=== PATIENT | male | born 1980 | race Caucasian/White ===

== ENCOUNTER 2018-07-31 17:53 | Emergency (ER) | payer BC ==
[2018-07-31 18:10] VITALS: BP 147/90
--- NOTE | 2018-07-31 18:31 | EDM.PDOC ---
ED HPI GENERAL MEDICAL PROBLEM - General Chief Complaint: Chest Pain Stated Complaint: chest pain Time Seen by Provider: 07/31/18 18:10 Source of Information: Reports: Patient History Limitations: Reports: No Limitations - History of Present Illness INITIAL COMMENTS - FREE TEXT/NARRATIVE: This patient is a 37 year old male that presents to the ER. Patent reports that he today about 2 hours ago started having left sided chest pain. Patient reports he was eating when it occurred. Patient reports the pain is worse with twisting or pulling of the chest. Patient reports he had the same pain in June about a month ago and was seen in [place] [facility]. He reports being diagnosed with chostochondritis. The patient reports that he did not take anything for it today. Patient denies injury. Patient denies goldsmith, dizziness, n, v , d, f, neck pain, neck stiffness, back pain, abd pain, urinary/bowel changes. Patient reports the pain just pulls in the area. The pain is easily manipulated on examination. Onset: Today Onset Date: 07/31/18 Duration: Hour(s): (2) Location: Reports: Chest Quality: Reports: Ache Severity: Mild Improves with: Reports: Immobilization Worsens with: Reports: Movement (of the chest) Associated Symptoms: Reports: Chest Pain. Denies: Confusion, Cough, cough w sputum, Diaphoresis, Fever/Chills, Headaches, Loss of Appetite, Malaise, Nausea/ Vomiting, Rash, Seizure, Shortness of Breath, Syncope, Weakness - Related Data Allergies Allergy/AdvReac Type Severity Reaction Status Date / Time sulfamethoxazole Allergy Hives Verified 07/31/18 17:55 [From Bactrim] trimethoprim [From Bactrim] Allergy Hives Verified 07/31/18 17:55 Home Meds: Home Meds Sertraline HCl 150 mg PO BEDTIME 12/25/15 [History] Acetaminophen [Tylenol] 650 mg PO Q6H PRN 08/06/17 [History] Ibuprofen 800 mg PO Q6HR PRN 08/06/17 [History] Multivitamin [One Daily] 1 tab PO DAILY 08/06/17 [History] Omeprazole 20 mg PO DAILY 08/06/17 [History] Bacillus Coagulans [Probiotic] 2 tab PO DAILY 08/09/17 [History] Past Medical History - Past Health History Medical/Surgical History: Denies Medical/Surgical History HEENT History: Reports: None Cardiovascular History: Reports: None Respiratory History: Reports: None Gastrointestinal History: Reports: GERD Genitourinary History: Reports: None Musculoskeletal History: Reports: None Neurological History: Reports: None Psychiatric History: Reports: Anxiety Endocrine/Metabolic History: Reports: None Hematologic History: Reports: None Immunologic History: Reports: None Oncologic (Cancer) History: Reports: None Dermatologic History: Reports: None - Infectious Disease History Infectious Disease History: Reports: Chicken Pox - Past Surgical History Head Surgeries/Procedures: Reports: None HEENT Surgical History: Reports: None Cardiovascular Surgical History: Reports: None GI Surgical History: Reports: Colonoscopy, EGD Social & Family History - Family History Family Medical History: Noncontributory - Tobacco Use Smoking Status *Q: Never Smoker - Caffeine Use Caffeine Use: Reports: Energy Drinks Caffeine Use Comment: random usage - Living Situation & Occupation Occupation: Employed ED ROS GENERAL - Review of Systems Review Of Systems: See Below Constitutional: Reports: No Symptoms HEENT: Reports: No Symptoms Respiratory: Reports: No Symptoms Cardiovascular: Reports: Chest Pain. Denies: Dyspnea on Exertion, Edema, Lightheadedness, Orthopnea, Palpitations, PND, Syncope Endocrine: Reports: No Symptoms GI/Abdominal: Reports: No Symptoms : Reports: No Symptoms Musculoskeletal: Reports: No Symptoms Skin: Reports: No Symptoms Neurological: Reports: No Symptoms Psychiatric: Reports: No Symptoms Hematologic/Lymphatic: Reports: No Symptoms Immunologic: Reports: No Symptoms ED EXAM, GENERAL - Physical Exam Exam: See Below Exam Limited By: No Limitations General Appearance: Alert, WD/WN, No Apparent Distress, Anxious Eye Exam: Bilateral Eye: Normal Inspection, PERRL Ears: Normal External Exam, Normal Canal, Hearing Grossly Normal, Normal TMs Ear Exam: Bilateral Ear: Auricle Normal, Canal Normal, TM normal Nose: Normal Inspection, Normal Mucosa, No Blood Throat/Mouth: Normal Inspection, Normal Lips, Normal Teeth, Normal Gums, Normal Oropharynx, Normal Voice, No Airway Compromise Head: Atraumatic, Normocephalic Neck: Normal Inspection, Supple, Non-Tender, Full Range of Motion Respiratory/Chest: No Respiratory Distress, Lungs Clear, Normal Breath Sounds, No Accessory Muscle Use, Other (mild tenderness to the left anterior chest with palpation. This pain is made worst by twisting/pulling of the chest wall. ). No : Respiratory Distress, Decreased Breath Sounds, Crackles, Rales, Rhonchi, Wheezing, Stridor, Pleural Rub, Accessory Muscle Use, Retractions, Splinting, Prolonged Expiration Cardiovascular: Normal Peripheral Pulses, Regular Rate, Rhythm, No Edema, No Gallop, No JVD, No Murmur, No Rub Peripheral Pulses: 2+: Radial (L), Radial (R), Posterior Tibial (L), Posterior Tibial (R), Dorsalis Pedis (L), Dorsalis Pedis (R) GI/Abdominal: Normal Bowel Sounds, Soft, Non-Tender, No Organomegaly, No Distention, No Abnormal Bruit, No Mass, Pelvis Stable (Male) Exam: Deferred Rectal (Males) Exam: Deferred Back Exam: Normal Inspection, Full Range of Motion. No: CVA Tenderness (L), CVA Tenderness (R), Decreased Range of Motion, Muscle Spasm, Paraspinal Tenderness, Vertebral Tenderness Extremities: Normal Inspection, Normal Range of Motion, Non-Tender, No Pedal Edema, Normal Capillary Refill. No: Pedal Edema, Slow Capillary Refill Neurological: Alert, Oriented, Normal Cognition, Normal Gait, No Motor/Sensory Deficits Psychiatric: Normal Affect, Anxious Skin Exam: Warm, Dry, Intact, Normal Color, No Rash Lymphatic: No Adenopathy EKG INTERPRETATION EKG Date: 07/31/18 Time: 17:58 Rhythm: NSR Rate (Beats/Min): 94 [place]: Normal P-Wave: Present QRS: Normal ST-T: Normal QT: Normal Course - Vital Signs Last Recorded V/S: Last Vital Signs Temp 98.0 F 07/31/18 17:55 Pulse 89 07/31/18 17:55 Resp 18 07/31/18 17:55 BP 147/90 H 07/31/18 17:55 Pulse Ox 95 07/31/18 17:55 - Orders/Labs/Meds Orders: Active Orders 24 hr Category Date Time Status Chest 2V [CR] Stat Exams 07/31/18 18:20 Taken Labs: Laboratory Tests 07/31/18 07/31/18 Range/Units 18:30 18:30 WBC 8.2 (5.0-10.0) 10^3/uL RBC 4.91 (4.50-6.00) 10^6/uL Hgb 14.8 (14.0-18.0) g/dL Hct 42.8 (40.0-54.0) % MCV 87.2 (82.0-94.0) fL MCH 30.1 (27.0-32.0) pg MCHC 34.6 (33.0-38.0) g/dL RDW Coeff of Sam 12.3 (11.0-15.0) % Plt Count 238 (150-400) 10^3/uL Neut % (Auto) 73.0 (35-85) % Lymph % (Auto) 16.5 (10-55) % [place] % (Auto) 6.6 (0-16) % Eos % (Auto) 3.8 (0-5) % Baso % (Auto) 0.1 (0-3) % Neut # (Auto) 6.02 (1.80-7.00) 10^3/uL Lymph # (Auto) 1.36 (1.00-4.80) 10^3/uL [place] # (Auto) 0.54 (0.00-0.80) 10^3/uL Eos # (Auto) 0.31 (0.00-0.45) 10^3/uL Baso # (Auto) 0.01 10^3/uL Sodium 143 (136-145) mEq/L Potassium 4.0 (3.5-5.0) mEq/L Chloride 104 (98-106) mEq/L Carbon Dioxide 31 (21-32) mmol/L BUN 14 (7-18) mg/dL Creatinine 0.9 (0.7-1.3) mg/dL Est Cr Clr Drug Dosing 4.50 mL/min Estimated GFR (MDRD) > 60 (>=60) mL/min Glucose 115 H (75-99) mg/dL Calcium 9.0 (8.4-10.1) mg/dL Total Bilirubin 0.4 (0.0-1.0) mg/dL AST 15 (15-37) U/L ALT 33 (12-78) U/L Alkaline Phosphatase 86 (46-116) U/L Troponin I < 0.017 (0.00-0.06) ng/mL NT-Pro-B Natriuret Pep 11 (0-1000) pg/mL Total Protein 7.6 (6.4-8.2) g/dL Albumin 3.7 (3.4-5.0) g/dL Meds: Medications Discontinued Medications Generic Name Dose Route Start Last Admin Trade Name Freq PRN Reason Stop Dose Admin Ketorolac Tromethamine 60 mg 07/31/18 18:38 07/31/18 18:43 Toradol IM 07/31/18 18:39 60 mg ONETIME ONE Administration - Radiology Interpretation Free Text/Narrative:: CXR: No infiltrates, no rib fxs, pneumo. Departure - Departure Time of Disposition: 19:48 Disposition: Home, Self-Care Preliminary Cause of *Q: Other_Special Instruction Reason for Transfer *Q: Other Condition: Good Clinical Impression: Costal chondritis Instructions: Costochondritis, [id number] Referrals: PCP,Not In Area [Primary Care Provider] - Forms: ED Department Discharge Additional Instructions: Followup with your primary care provider Return to the ER for worsening of condition or any emergent concerns Motrin over the counter for pain No heavy lifting for 2 weeks or until improved - My Orders Last 24 Hours: My Active Orders 07/31/18 18:20 Chest 2V [CR] Stat - Assessment/Plan Last 24 Hours: My Active Orders 07/31/18 18:20 Chest 2V [CR] Stat Plan: PLEASE SEE RN NOTE FOR PFSH.
[2018-07-31] MEDS ORDERED: Ketorolac 60 MG/2 ML SDV IM ONE (18:38)
[2018-07-31 18:57] LABS: CHLORIDE,CL 104 mEq/L (98-106); SODIUM,NA 143 mEq/L (136-145)
== END 2018-07-31 19:55 | disposition home or self-care (01) ==
LOC: CC.ED 17:53
DX: M94.0 Chondrocostal junction syndrome [Tietze] (principal); F41.9 Anxiety disorder, unspecified; K21.9 Gastro-esophageal reflux disease without esophagitis; Z79.899 Other long term (current) drug therapy; Z88.2 Allergy status to sulfonamides; Z88.1 Allergy status to other antibiotic agents
CPT/HCPCS: 36415; 71046; 80053; 83880; 84484; 85025; 96372; 99284; J1885

== ENCOUNTER 2018-12-01 04:19 | Emergency (ER) | payer BC ==
[2018-12-01] MEDS ORDERED: Aspirin 81 MG Tab.Chew PO ONE (04:47)
[2018-12-01 04:54] VITALS: BP 141/82
[2018-12-01 04:59] LABS: CHLORIDE,CL 106 mEq/L (98-106); SODIUM,NA 143 mEq/L (136-145)
--- NOTE | 2018-12-01 05:17 | EDM.PDOC ---
ED HPI GENERAL MEDICAL PROBLEM - General Chief Complaint: Chest Pain Stated Complaint: "Having chest pain" Time Seen by Provider: 12/01/18 04:56 Source of Information: Reports: Patient History Limitations: Reports: No Limitations - History of Present Illness INITIAL COMMENTS - FREE TEXT/NARRATIVE: Patient presents to ER with left sided chest pain. States is unsure if pain awoke him but he was up to bathroom and experiencing this discomfort. He admits the pain radiated through to his back. [place] anxious and short of breath as a result. He states he noted a twitching in his left elbow and wasn't sure if it was a muscle spasm or his pulse racing and that made the anxiety and discomfort worse. [place] nauseated and did note diaphoresis. Admits he does have anxiety with PTSD due to a tour in [place]. States has been worse since returning home. Currently on Sertraline. Was seen in the [place] ER in June and here in July for same concerns. Had thorough work up that was normal. Father had [place] at age 51. Denies history of hypertension, hyperlipidemia. Nonsmoker. Occasional caffeine use. Onset: Today, Sudden Duration: Minutes:, Improving Location: Reports: Chest Quality: Reports: Sharp, Stabbing Severity: Moderate Improves with: Reports: Rest Associated Symptoms: Reports: Chest Pain, Diaphoresis, Nausea/Vomiting, Shortness of Breath. Denies: Confusion, Cough, Fever/Chills, Loss of Appetite, Syncope, Weakness Chest Pain Score (Numeric/FACES): 3 - Related Data Allergies Allergy/AdvReac Type Severity Reaction Status Date / Time sulfamethoxazole Allergy Hives Verified 12/01/18 04:41 [From Bactrim] trimethoprim [From Bactrim] Allergy Hives Verified 12/01/18 04:41 Home Meds: Home Meds Sertraline HCl 150 mg PO BEDTIME 12/25/15 [History] Acetaminophen [Tylenol] 650 mg PO Q6H PRN 08/06/17 [History] Ibuprofen 800 mg PO Q6HR PRN 08/06/17 [History] Multivitamin [One Daily] 1 tab PO DAILY 08/06/17 [History] Omeprazole 20 mg PO DAILY 08/06/17 [History] Bacillus Coagulans [Probiotic] 2 tab PO DAILY 08/09/17 [History] Past Medical History - Past Health History Medical/Surgical History: Denies Medical/Surgical History HEENT History: Reports: None Cardiovascular History: Reports: None Respiratory History: Reports: None Gastrointestinal History: Reports: GERD Genitourinary History: Reports: None Musculoskeletal History: Reports: None Neurological History: Reports: None Psychiatric History: Reports: Anxiety Endocrine/Metabolic History: Reports: None Hematologic History: Reports: None Immunologic History: Reports: None Oncologic (Cancer) History: Reports: None Dermatologic History: Reports: None - Infectious Disease History Infectious Disease History: Reports: Chicken Pox - Past Surgical History Head Surgeries/Procedures: Reports: None HEENT Surgical History: Reports: None Cardiovascular Surgical History: Reports: None GI Surgical History: Reports: Colonoscopy, EGD Social & Family History - Family History Family Medical History: Noncontributory Psychiatric: Reports: PTSD - Tobacco Use Smoking Status *Q: Never Smoker Second Hand Smoke Exposure: No - Caffeine Use Caffeine Use: Reports: Energy Drinks Caffeine Use Comment: random usage - Recreational Drug Use Recreational Drug Use: No - Living Situation & Occupation Occupation: Employed ED ROS GENERAL - Review of Systems Review Of Systems: See Below Constitutional: Denies: Fever, Chills, Malaise, Weakness, Decreased Appetite HEENT: Denies: Ear Pain, Sinus Problem, Throat Pain, Vertigo, Vision Change Respiratory: Reports: Shortness of Breath. Denies: Cough Cardiovascular: Reports: Chest Pain. Denies: Edema, Lightheadedness Endocrine: Denies: Fatigue GI/Abdominal: Reports: Nausea. Denies: Abdominal Pain, Constipation, Diarrhea, Vomiting : Reports: No Symptoms Musculoskeletal: Reports: No Symptoms Skin: Reports: No Symptoms Neurological: Reports: No Symptoms Psychiatric: Reports: Anxiety ED EXAM, GENERAL - Physical Exam Exam: See Below Exam Limited By: No Limitations General Appearance: Alert, WD/WN, No Apparent Distress Ears: Normal External Exam, Other (cerumen impaction noted) Nose: Normal Inspection, Normal Mucosa, No Blood Throat/Mouth: Normal Inspection, Normal Oropharynx Head: Normocephalic Neck: Normal Inspection, Supple, Non-Tender Respiratory/Chest: No Respiratory Distress, Lungs Clear, Normal Breath Sounds Cardiovascular: Regular Rate, Rhythm, No Edema GI/Abdominal: Normal Bowel Sounds, Soft, Non-Tender Extremities: Normal Inspection, No Pedal Edema Neurological: Alert, Oriented Skin Exam: Warm, Dry Course - Vital Signs Last Recorded V/S: Last Vital Signs Temp 98.5 F 05/16/19 04:20 Pulse 86 12/01/18 04:20 Resp 20 12/01/18 04:20 BP 141/82 H 12/01/18 04:20 Pulse Ox 98 12/01/18 04:20 - Orders/Labs/Meds Orders: Active Orders 24 hr Category Date Time Status Chest 2V [CR] Stat Exams 12/01/18 Taken Labs: Laboratory Tests 12/01/18 12/01/18 12/01/18 Range/Units 04:43 04:43 04:43 WBC 7.1 (5.0-10.0) 10^3/uL RBC 5.01 (4.50-6.00) 10^6/uL Hgb 15.4 (14.0-18.0) g/dL Hct 43.3 (40.0-54.0) % MCV 86.4 (82.0-94.0) fL MCH 30.7 (27.0-32.0) pg MCHC 35.6 (33.0-38.0) g/dL RDW Coeff of Sam 13.2 (11.0-15.0) % Plt Count 236 (150-400) 10^3/uL Neut % (Auto) 68.7 (35-85) % Lymph % (Auto) 18.5 (10-55) % [place] % (Auto) 8.3 (0-16) % Eos % (Auto) 4.4 (0-5) % Baso % (Auto) 0.1 (0-3) % Neut # (Auto) 4.89 (1.80-7.00) 10^3/uL Lymph # (Auto) 1.32 (1.00-4.80) 10^3/uL [place] # (Auto) 0.59 (0.00-0.80) 10^3/uL Eos # (Auto) 0.31 (0.00-0.45) 10^3/uL Baso # (Auto) 0.01 10^3/uL PT 10.1 (9.7-12.3) SEC INR 0.98 (0.92-1.18) APTT 27.8 (23.2-32.3) SEC Sodium 143 (136-145) mEq/L Potassium 3.7 (3.5-5.0) mEq/L Chloride 106 (98-106) mEq/L Carbon Dioxide 26 (21-32) mmol/L BUN 17 (7-18) mg/dL Creatinine 1.0 (0.7-1.3) mg/dL Est Cr Clr Drug Dosing 116.52 mL/min Estimated GFR (MDRD) > 60 (>=60) mL/min Glucose 115 H (75-99) mg/dL Calcium 8.7 (8.4-10.1) mg/dL Lactate Dehydrogenase 148 (100-190) U/L Creatine Kinase 137 (35-232) U/L Troponin I < 0.017 (0.00-0.06) ng/mL Meds: Medications Discontinued Medications Generic Name Dose Route Start Last Admin Trade Name Shahbaz PRN Reason Stop Dose Admin Aspirin 324 mg 12/01/18 04:47 Aspirin PO 12/01/18 04:48 ONETIME ONE - Re-Assessments/Exams Free Text/Narrative Re-Assessment/Exam: 12/01/18 05:17 Labs, EKG, CXR all normal this am. Discussed with patient. Discussed his anxiety and PTSD. [facility], will discuss [facility] visits with them, possible issues with panic attacks and determine further cardiac work up or medications for this Departure - Departure Time of Disposition: 05:18 Disposition: Home, Self-Care 01 Condition: Good Clinical Impression: Atypical chest pain, Anxiety Additional Instructions: 1. Rest 2. Push fluids 3. Discuss ER visits and symptoms with the [facility] at appointment. May consider cardiac stress test or possibly further treatment augmentation for anxiety 4. Return if develop worsening or persisting symptoms - My Orders Last 24 Hours: My Active Orders 12/01/18 Chest 2V [CR] Stat - Assessment/Plan Last 24 Hours: My Active Orders 12/01/18 Chest 2V [CR] Stat
== END 2018-12-01 05:25 | disposition home or self-care (01) ==
LOC: CC.ED 04:19
DX: R07.89 Other chest pain (principal); F41.9 Anxiety disorder, unspecified; K21.9 Gastro-esophageal reflux disease without esophagitis; Z88.2 Allergy status to sulfonamides; Z88.1 Allergy status to other antibiotic agents; Z79.899 Other long term (current) drug therapy
CPT/HCPCS: 36415; 71046; 80048; 82550; 83615; 84484; 85025; 85610; 85730; 99285-25

== ENCOUNTER 2019-01-13 17:42 | Emergency (ER) | payer BC ==
[2019-01-13] MEDS ORDERED: traMADol 50 MG Tab PO ONE (17:43)
[2019-01-13 17:49] VITALS: BP 126/80
[2019-01-13] MEDS ORDERED: Take Home: traMADol 50 MG, 4 Tab Pack PO ONE (18:06)
--- NOTE | 2019-01-13 18:10 | EDM.PDOC ---
ED HPI GENERAL MEDICAL PROBLEM - General Chief Complaint: ENT Problem Stated Complaint: left upper toothache Time Seen by Provider: 01/13/19 18:05 Source of Information: Reports: Patient History Limitations: Reports: No Limitations - History of Present Illness INITIAL COMMENTS - FREE TEXT/NARRATIVE: This patient is a 38 year old male that presents to the emergency department. Patient reports at 3pm today having left upper dental pain. Denies injury, n, v , d, f, swelling, or airway closure. Onset: Today Onset Date: 01/13/19 Onset Time: 15:00 Location: Reports: Other (tooth) Quality: Reports: Ache Severity: Mild Improves with: Reports: None Worsens with: Reports: None Associated Symptoms: Reports: No Other Symptoms. Denies: Confusion, Chest Pain , Cough, cough w sputum, Diaphoresis, Fever/Chills, Headaches, Loss of Appetite , Malaise, Nausea/Vomiting, Rash, Seizure, Shortness of Breath, Syncope, Weakness TOOTHACHE Pain Score (Numeric/FACES): 6 - Related Data Allergies Allergy/AdvReac Type Severity Reaction Status Date / Time sulfamethoxazole Allergy Hives Verified 01/13/19 17:44 [From Bactrim] trimethoprim [From Bactrim] Allergy Hives Verified 01/13/19 17:44 Home Meds: Home Meds Sertraline HCl 150 mg PO BEDTIME 12/25/15 [History] Acetaminophen [Tylenol] 650 mg PO Q6H PRN 08/06/17 [History] Ibuprofen 800 mg PO Q6HR PRN 08/06/17 [History] Multivitamin [One Daily] 1 tab PO DAILY 08/06/17 [History] Omeprazole 20 mg PO DAILY 08/06/17 [History] Bacillus Coagulans [Probiotic] 2 tab PO DAILY 08/09/17 [History] traMADol [Ultram] 50 mg PO Q6H PRN #12 tab 01/13/19 [Rx] Past Medical History - Past Health History Medical/Surgical History: Denies Medical/Surgical History HEENT History: Reports: None Cardiovascular History: Reports: None Respiratory History: Reports: None Gastrointestinal History: Reports: GERD Genitourinary History: Reports: None Musculoskeletal History: Reports: None Neurological History: Reports: None Psychiatric History: Reports: Anxiety Endocrine/Metabolic History: Reports: None Hematologic History: Reports: None Immunologic History: Reports: None Oncologic (Cancer) History: Reports: None Dermatologic History: Reports: None - Infectious Disease History Infectious Disease History: Reports: Chicken Pox - Past Surgical History Head Surgeries/Procedures: Reports: None HEENT Surgical History: Reports: None Cardiovascular Surgical History: Reports: None GI Surgical History: Reports: Colonoscopy, EGD Social & Family History - Family History Family Medical History: Noncontributory Psychiatric: Reports: PTSD - Tobacco Use Smoking Status *Q: Never Smoker Second Hand Smoke Exposure: No - Caffeine Use Caffeine Use: Reports: Energy Drinks Caffeine Use Comment: random usage - Living Situation & Occupation Occupation: Employed ED ROS ENT - Review of Systems Review Of Systems: See Below Constitutional: Reports: No Symptoms. Denies: Fever HEENT: Reports: No Symptoms, Dental Pain. Denies: Ear Discharge, Ear Pain, Eye Discharge, Eye Pain, Nose Pain, Rhinitis, Sinus Problem, Throat Pain, Throat Swelling, Vertigo, Vision Change Respiratory: Reports: No Symptoms Cardiovascular: Reports: No Symptoms Endocrine: Reports: No Symptoms GI/Abdominal: Reports: No Symptoms : Reports: No Symptoms Musculoskeletal: Reports: No Symptoms Skin: Reports: No Symptoms Neurological: Reports: No Symptoms Psychiatric: Reports: No Symptoms Hematologic/Lymphatic: Reports: No Symptoms Immunologic: Reports: No Symptoms ED EXAM, ENT - Physical Exam Exam: See Below Exam Limited By: No Limitations General Appearance: Alert, WD/WN, No Apparent Distress Eye Exam: Bilateral Eye: EOMI, Normal Inspection, PERRL Ears: Normal External Exam, Normal Canal, Hearing Grossly Normal, Normal TMs Nose: Normal Inspection, Normal Mucousa, No Blood Mouth/Throat: Normal Inspection, Normal Gums, Normal Lips, Normal Oropharynx, Dental Pain, Dental Tenderness (#4m, 2nd bicuspid. mild. mild decay. ). No: Dental Trauma, Drooling, Dry Mucous Membrane, Gum Swelling, Oral Ulcers, Perioral Cyanosis, Peritonsillar Mass, Pharyngeal Erythema, Throat Pain, Throat Swelling, Tongue Swelling, Tonsillar Erythema, Tonsillar Exudates, Tonsillar Swelling, Trismus, Uvular Deviation, Uvular Edema Head: Atraumatic, Normocephalic Neck: Normal Inspection, Supple, Non-Tender, Full Range of Motion Respiratory/Chest: No Respiratory Distress, Lungs Clear, Normal Breath Sounds, No Accessory Muscle Use Cardiovascular: Normal Peripheral Pulses, Regular Rate, Rhythm, No Edema, No Gallop, No JVD, No Murmur, No Rub Extremities: Normal Inspection, Normal Capillary Refill Neurological: Alert, Oriented Psychiatric: Normal Affect, Normal Mood Skin: Warm, Dry, Intact, Normal Color, No Rash Lymphatic: No Adenopathy Course - Vital Signs Last Recorded V/S: Last Vital Signs Temp 97.2 F 01/13/19 17:46 Pulse 98 01/13/19 17:46 Resp 20 01/13/19 17:46 BP 126/80 01/13/19 17:46 Pulse Ox 97 01/13/19 17:46 - Orders/Labs/Meds Meds: Medications Discontinued Medications Generic Name Dose Route Start Last Admin Trade Name Freq PRN Reason Stop Dose Admin Tramadol HCl 1 packet 01/13/19 18:06 Take Home: Tramadol 50 Mg, 4 Tab Pack PO 01/13/19 18:07 ONETIME ONE Departure - Departure Time of Disposition: 18:11 Disposition: Home, Self-Care 01 Condition: Good Clinical Impression: Pain, dental - Discharge Information *PRESCRIPTION DRUG MONITORING PROGRAM REVIEWED*: No *COPY OF PRESCRIPTION DRUG MONITORING REPORT IN PATIENT BRANDEN: No Prescriptions: traMADol [Ultram] 50 mg PO Q6H PRN #12 tab PRN Reason: Pain Instructions: Preventive Dental Care, Adult Referrals: PCP,Not In Area [Primary Care Provider] - Forms: ED Department Discharge Additional Instructions: Followup with dentist Sensodyne toothpaste Orajel as needed Avoid sugar foods Return for fever or other concerns Amoxicillin 500mg 1 pill three times a day for 10 days #30 no refill Ultram 50mg 1 pill every 6 hours as needed for pain #4 take home, #12 no refill - Assessment/Plan Plan: PLEASE SEE RN NOTE FOR PFSH.
== END 2019-01-13 18:21 | disposition home or self-care (01) ==
LOC: CC.ED 17:42
DX: K02.9 Dental caries, unspecified (principal); K21.9 Gastro-esophageal reflux disease without esophagitis; F41.9 Anxiety disorder, unspecified; Z88.2 Allergy status to sulfonamides; Z88.1 Allergy status to other antibiotic agents; Z79.899 Other long term (current) drug therapy
CPT/HCPCS: 99282; A9270-GY

== ENCOUNTER 2022-04-01 23:10 | Emergency (ER) | payer OTHER, BC ==
[2022-04-02 00:28] VITALS: BP 130/89; PULSE 77
== END 2022-04-02 00:51 | disposition home or self-care (01) ==
LOC: CC.ED 23:10
DX: R07.89 Other chest pain (principal); F41.9 Anxiety disorder, unspecified; K21.9 Gastro-esophageal reflux disease without esophagitis; Z88.1 Allergy status to other antibiotic agents; Z79.899 Other long term (current) drug therapy; Z20.822 Contact with and (suspected) exposure to COVID-19
CPT/HCPCS: 93010; 99284; U0002

== ENCOUNTER 2023-11-16 15:40 | Emergency (ER) | payer OTHER, BC ==
[2023-11-16 15:53] VITALS: BP 133/85; PULSE 82
[2023-11-16 16:07] LABS: APPEARANCE,URINE CLOUDY (CLEAR); BILIRUBIN,URINE NEGATIVE (NEGATIVE); COLOR,URINE DARK YELLOW (YELLOW); GLUCOSE,URINE NEGATIVE (NEGATIVE); KETONES,URINE NEGATIVE (NEGATIVE); LEUKOCYTE ESTERASE,URINE NEGATIVE (NEGATIVE); NITRITE,URINE NEGATIVE (NEGATIVE); OCCULT BLOOD,URINE LARGE (NEGATIVE); PROTEIN,URINE 30 mg/dL (NEGATIVE); UROBILINOGEN,URINE 0.2 EU/dL (0.2-1.0)
[2023-11-16 16:09] LABS: BASOPHILS ABSOLUTE AUTO 0.02 10^3/uL (0.00-0.50); BASOPHILS PERCENT AUTO 0.3 % (0-1); EOSINOPHILS ABSOLUTE AUTO 0.32 10^3/uL (0.00-1.50); EOSINOPHILS PERCENT AUTO 4.5 % (0-6); HEMATOCRIT 45.7 % (42.0-52.0); HEMOGLOBIN 15.2 g/dL (14.0-18.0); IMMATURE GRAN ABSOLUTE AUTO 0.02 10^3/uL (0.00-0.49); IMMATURE GRAN PERCENT AUTO 0.3 % (0.0-4.9); LYMPHOCYTES ABSOLUTE AUTO 1.51 10^3/uL (0.60-5.00); LYMPHOCYTES PERCENT AUTO 21.4 % (24-44); MEAN CORPUSCULAR HEMOGLOBIN 29.6 pg (27.0-32.0); MEAN CORPUSCULAR HGB CONC 33.3 g/dL (32.0-36.0); MEAN CORPUSCULAR VOLUME 88.9 fL (83.0-97.0); MONOCYTES ABSOLUTE AUTO 0.43 10^3/uL (0.00-1.50); MONOCYTES PERCENT AUTO 6.1 % (0-10); NEUTROPHILS ABSOLUTE AUTO 4.74 x10^3/uL (1.80-8.00); NEUTROPHILS PERCENT AUTO 67.4 % (41-71); PLATELET COUNT,PLT 242 10^3/uL (150-400); RED BLOOD CELL COUNT 5.14 x10^6/uL (4.50-6.00)
[2023-11-16 16:11] LABS: BACTERIA,URINE NOT SEEN /HPF (NOT SEEN); RBC CLUMPS,URINE PRESENT /HPF (NOT SEEN); RBC,URINE >100 /HPF (0-5); SQUAMOUS EPITHELIAL CELLS,UR OCCASIONAL /HPF (NOT SEEN); WBC,URINE NOT SEEN /HPF (0-5)
[2023-11-16 16:12] LABS: CALCIUM OXALATE CRYSTALS,URINE OCCASIONAL /HPF (NOT SEEN)
[2023-11-16] MEDS: Sodium Chloride 0.9% 1,000 ML IV ONE (16:13)
[2023-11-16 16:23] LABS: AMYLASE 85 U/L (25-115); LIPASE 58 U/L (16-77)
[2023-11-16 16:25] LABS: ALBUMIN 4.2 g/dL (3.4-5.0); BILIRUBIN TOTAL 0.3 mg/dL (0.0-1.0); EST CRCL DRUG DOSING (CG) 110.97 mL/min; POTASSIUM,K 3.6 mEq/L (3.5-5.0); PROTEIN TOTAL,TP 7.9 g/dL (6.4-8.2)
[2023-11-16] MEDS: Ketorolac 30 MG/ML SDV IVPUSH ONE (16:37)
== END 2023-11-16 17:27 | disposition home or self-care (01) ==
LOC: CC.ED 15:40
DX: N13.2 Hydronephrosis with renal and ureteral calculous obstruction (principal); K21.9 Gastro-esophageal reflux disease without esophagitis; Z88.2 Allergy status to sulfonamides; Z88.8 Allergy status to other drugs, medicaments and biological substances; Z79.899 Other long term (current) drug therapy
CPT/HCPCS: 36415; 74176; 80053; 81001; 82150; 83690; 85025; 96361; 96374; 99284; 99284-25; J1885; J7030

== ENCOUNTER 2024-01-20 15:07 | Emergency (ER) | payer OTHER, BC ==
[2024-01-20] MEDS ORDERED: Sodium Chloride 0.9% 10 ML Syringe FLUSH PRN (15:08)
[2024-01-20] MEDS: Ketorolac 30 MG/ML SDV IVPUSH ONE (15:19)
[2024-01-20 15:20] LABS: APPEARANCE,URINE CLEAR (CLEAR); BILIRUBIN,URINE NEGATIVE (NEGATIVE); COLOR,URINE YELLOW (YELLOW); GLUCOSE,URINE NEGATIVE (NEGATIVE); KETONES,URINE NEGATIVE (NEGATIVE); LEUKOCYTE ESTERASE,URINE NEGATIVE (NEGATIVE); NITRITE,URINE NEGATIVE (NEGATIVE); OCCULT BLOOD,URINE MODERATE (NEGATIVE); PROTEIN,URINE NEGATIVE (NEGATIVE); UROBILINOGEN,URINE 0.2 EU/dL (0.2-1.0)
[2024-01-20] MEDS: Sodium Chloride 0.9% 1,000 ML IV ONE (15:20)
[2024-01-20 15:21] LABS: BASOPHILS ABSOLUTE AUTO 0.01 10^3/uL (0.00-0.50); BASOPHILS PERCENT AUTO 0.1 % (0-1); EOSINOPHILS PERCENT AUTO 4.2 % (0-6); HEMATOCRIT 42.7 % (42.0-52.0); HEMOGLOBIN 14.7 g/dL (14.0-18.0); LYMPHOCYTES ABSOLUTE AUTO 1.24 10^3/uL (0.60-5.00); LYMPHOCYTES PERCENT AUTO 17.3 % (24-44); MEAN CORPUSCULAR HEMOGLOBIN 30.1 pg (27.0-32.0); MEAN CORPUSCULAR HGB CONC 34.4 g/dL (32.0-36.0); MEAN CORPUSCULAR VOLUME 87.3 fL (83.0-97.0); MONOCYTES ABSOLUTE AUTO 0.44 10^3/uL (0.00-1.50); MONOCYTES PERCENT AUTO 6.1 % (0-10); NEUTROPHILS ABSOLUTE AUTO 5.17 x10^3/uL (1.80-8.00); NEUTROPHILS PERCENT AUTO 72.3 % (41-71); PLATELET COUNT,PLT 225 10^3/uL (150-400); RED BLOOD CELL COUNT 4.89 x10^6/uL (4.50-6.00); WHITE BLOOD CELL COUNT,WBC 7.2 10^3/uL (4.0-11.0)
[2024-01-20 15:25] LABS: BACTERIA,URINE NOT SEEN /HPF (NOT SEEN); EPITHELIAL CELLS,URINE NOT SEEN /HPF (NOT SEEN); MUCUS,URINE FEW /HPF (NOT SEEN); RBC,URINE 20-30 /HPF (0-5); WBC,URINE NOT SEEN /HPF (0-5)
[2024-01-20 15:35] LABS: ALANINE AMINOTRANSFERASE,ALT 14 U/L (12-78); ALKALINE PHOSPHATASE 92 U/L (46-116); ASPARTATE AMNIOTRANSFERASE,AST 19 U/L (15-37); BILIRUBIN TOTAL 0.8 mg/dL (0.0-1.0); BLOOD UREA NITROGEN,BUN 15 mg/dL (7-18); C-REACTIVE PROTEIN < 0.50 mg/dL (<=0.50); CALCIUM 8.9 mg/dL (8.4-10.1); CARBON DIOXIDE,CO2 27 mmol/L (21-32); CHLORIDE,CL 102 mEq/L (98-106); ESTIMATED GFR 97 mL/min (>=60); GLUCOSE RANDOM 104 mg/dL (75-99); POTASSIUM,K 3.9 mEq/L (3.5-5.0); PROTEIN TOTAL,TP 7.6 g/dL (6.4-8.2); SODIUM,NA 141 mEq/L (136-145)
[2024-01-20] MEDS: Tamsulosin 0.4 MG Cap.ER PO ONE (17:25)
[2024-01-20] MEDS: Take Home: Ketorolac 10 MG Tab, 4 Tab Pack PO ONE (18:30)
[2024-01-20 18:41] VITALS: BP 118/81; PULSE 68
== END 2024-01-20 18:35 | disposition home or self-care (01) ==
LOC: CC.ED 15:07
DX: N20.0 Calculus of kidney (principal); K21.9 Gastro-esophageal reflux disease without esophagitis; Z88.2 Allergy status to sulfonamides; Z88.8 Allergy status to other drugs, medicaments and biological substances; Z79.899 Other long term (current) drug therapy
CPT/HCPCS: 36415; 74176; 80053; 81001; 85025; 86140; 96374; 99284-25; A9270-GY; J1885; J7030